=== PATIENT | female | born 2000 | race African-American/Black ===

== ENCOUNTER 2022-01-28 09:29 | Emergency (ER) | payer OTHER, SELFPAY ==
[2022-01-28 09:43] VITALS: BP 137/87; PULSE 70; RESP 16; TEMP 36.7; O2SAT 99
--- NOTE | 2022-01-28 09:51 | ED.WOUNDLAC ---
HPI - Wound/Laceration General Chief Complaint: Wound/Laceration Stated Complaint: Right Pinky Finger Laceration Time Seen by Provider: 01/28/22 09:52 Source: patient Mode of arrival: ambulatory Limitations: no limitations History of Present Illness HPI narrative: 21-year-old female presented for complaint of laceration to the right little finger 4 days ago. She states she cannot bend the finger at the site of the laceration. She denies significant redness, swelling, or any drainage. Related Data Allergies Allergy/AdvReac Type Severity Reaction Status Date / Time No Known Allergies Allergy Verified 01/28/22 10:04 Review of Systems Review of Systems: CONSTITUTIONAL: Denies body aches, fever, chills, or sweats. EYES: Denies visual changes, redness, or discharge. ENT: Denies rhinorrhea, congestion CARDIOVASCULAR: Denies chest pain, palpitations, or edema. RESPIRATORY: Denies cough or dyspnea. GASTROINTESTINAL: Denies abdominal pain, nausea, vomiting, or diarrhea. SKIN: laceration to right finger MUSCULOSKELETAL: Denies back pain, joint pain, or myalgia. NEUROLOGIC: Denies headache, numbness, tingling, or weakness. PMFSH Comments At time of signature, I have reviewed and agree with nursing past medical, surgical, social and family history unless otherwise noted. Please see nursing chart for further information. There is no relevant family history pertinent to the presenting complaint Exam Narrative: GENERAL: Well-appearing EYES: conjunctivae clear, and EOMI. ENT: Mucous membranes moist. Oropharynx without edema, erythema or lesions. CHEST: Clear to auscultation. HEART: Regular rate and rhythm. SKIN: Warm, dry. Healing laceration approx 0.5cm, transverse, to right 5th finger at the palmar surface of PIP. Decreased ROM to the finger at PIP, unable to flex. Strength decreased. Subjective decreased sensation surrounding the laceration. Endorses sensation intact distally. Cap refill <3seconds. Skin is warm, no active drainage or surrounding erythema. NEURO: Alert and oriented x3. Course Course Emergency Course: Patient is aware of diagnosis, understands and agrees to treatment plan. Anticipatory guidance given. Patient agrees to follow-up as directed and is aware of reasons to seek care at the emergency department. Portions of this record may have been created with voice recognition software Level of Care: Express Care Visit Vital Signs Vital signs: Vital Signs Temperature 98.1 F 01/28/22 09:43 Pulse Rate 70 01/28/22 09:43 Respiratory Rate 16 01/28/22 09:43 Blood Pressure 137/87 01/28/22 09:43 Pulse Oximetry 99 01/28/22 09:43 Oxygen Delivery Room Air 01/28/22 09:43 Temperature 98.1 F 01/28/22 09:43 Pulse Rate 70 01/28/22 09:43 Respiratory Rate 16 01/28/22 09:43 Blood Pressure 137/87 01/28/22 09:43 Pulse Oximetry 99 01/28/22 09:43 Oxygen Delivery Room Air 01/28/22 09:43 Reviewed MDM - Wound/Laceration MDM Narrative Medical decision making narrative: Concern for flexor tendon involvement. Patient is advised to f/u with the Hand specialist, instructed to call today to schedule an appointment. No apparent cellulitis or induration. Reports pain is mild. Tetanus within 10 years. Advised supportive measures and signs/symptoms to go to the ER. Pt is appropriate for outpt treatment and f/u. Differential Diagnosis Differential diagnosis: Likely laceration, abrasion, avulsion of skin and other Discharge Plan Discharge Clinical Impression: Laceration Patient Disposition: Home, Self-Care Condition: Stable Additional Instructions: Keep the area clean and dry - cleanse with warm water and mild soap and allow to fully dry. Ok to apply neosporin to the site, Keep it open to air (no bandages) Avoid peroxide Continue passive exercises Keep hand up to reduce swelling Tylenol and ibuprofen as needed for pain Watch for worsening symptoms including pain, redness
== END 2022-01-28 10:22 | disposition home or self-care (01) ==
PROVIDERS: Emergency Provider Nurse Practitioner Family
DX: S61.216A Laceration without foreign body of right little finger without damage to nail, initial encounter (principal); X58.XXXA Exposure to other specified factors, initial encounter
CPT/HCPCS: 99203; G0463

== ENCOUNTER 2022-01-29 02:52 | Day surgery (SDC) | payer OTHER, SELFPAY ==
[2022-01-28 14:16] VITALS: BMI 20.3
--- NOTE | 2022-01-28 14:24 | PC.NURSE ---
Report to the Outpatient Waiting Room, entrance under the green pavilion located off [facility], at time 0900 on date 01/29/22. OR Time: 1100. Time changes happen often and if your time is changed the preop area will call you the afternoon before. - You and your visitor will be asked to self-screen and do not enter if you have any COVID symptoms. - We encourage only one visitor and NO visitors under age 16 are allowed at this time. Your visitor will receive communication by the phone number that is given day of service. - The patient visitor is requested to social distance or may leave the building when not with patient due to restrictions. - A mask is required within the hospital. Patients may have clear liquids (water, carbonated beverages, clear teas, apple juice) until 3 hours prior to surgery with a maximum of 20 ounces. - No food from midnight until time of surgery Take the following medications with a SIP of water the morning of surgery: CEPHALEXIN Medications to discontinue per physician: N/A Date to take last dose: N/A Please no make-up, nail latvian, hairspray, perfume, deodorant, or body powder the day of surgery. No jewelry (including any body piercings) or valuables the day of surgery, leave them at home. Please take a shower or bath the night before, or the morning of, surgery with an antibacterial soap. Wear comfortable, loose fitting clothing. - Jewelry must be removed prior to entering the operating room. Rings and piercings that are not removed may be cut off. - The hospital will not accept responsibility for valuables. - Please leave all valuables, including medications, at home the day of surgery. If you are going home after surgery, a licensed cdl dedicated truck driver must drive you home. - NO public transportation without another adult. - We recommend that an adult stay with you for 24 hours following discharge. - We also recommend that you do not drive, make important decision, drink alcoholic beverages, or take any drugs that were not prescribed by your health care provider for at least 24 hours after your discharge time. Follow any additional instructions given to you from your surgeon. If you or anyone in your household have experienced Covid symptoms in the past week, please notify your surgeon or the nurse liaison at the phone number below for possible testing. Telephone instructions given to PT - BRAYDEN ALEMAN and asked if any additional questions and then verbalized understanding. Patient advised to call surgeon office or pre surgery nurse liaison [phone] if any additional questions.
--- NOTE | 2022-01-29 07:13 | WPDHPUPDATE1 ---
History and Physical Update Update Date/Time: 01/29/22 07:13 History and Physical has been reviewed, including an updated exam of the patient. There are NO changes in the patient's condition. Risks, benefits, and alternatives have been discussed and questions answered. Patient agrees to proceed with procedure.
[2022-01-29] MEDS: ACETAMINOPHEN 500 MG TABLET 1000 MG PO (07:35)
[2022-01-29 07:44] VITALS: BP 114/75; PULSE 67; RESP 16; TEMP 36.8; O2SAT 100
[2022-01-29] MEDS: LACTATED RINGERS 1,000 ML 30 ML IV CONT ×2 (08:02→12:37)
--- NOTE | 2022-01-29 08:28 | WPDANESEPPF ---
Anes - Initial Pre Proc Eval Procedure: Operation Date: 01/29/22 09:30 Proposed Procedures p Repair Two Flexor Tendons and Digital Nerves Right Fifth Finger - Rojas Ward MD Date/Time: 01/29/22 08:28 Surgeon: Rojas Ward MD Pre Op Diagnosis: Lac Flexor Tendons & Digital Nerve Rt 5th finger Patient Data Age: 21 Gender: F Height: 1.7 m Weight: 55.8 kg Last Vital Signs Temp 36.8 C 01/29/22 07:44 Pulse 67 01/29/22 07:44 Resp 16 01/29/22 07:44 BP 114/75 01/29/22 07:44 Pulse Ox 100 01/29/22 07:44 O2 Del Method Room Air 01/29/22 07:44 Allergies Allergy/AdvReac Type Severity Reaction Status Date / Time No Known Allergies Allergy Verified 01/29/22 07:31 Home Medications Medication Instructions Recorded Confirmed Type cephalexin 500 mg capsule 500 mg PO Q12H 5 days #10 caps 01/28/22 01/29/22 Rx Patient hx anesthesia problems: none Family hx anesthesia problems: none Results Review: All pre-operative results and documents have been reviewed as part of the pre-operative evaluation. [facility] Social History Social History Smoking status: Current every day smoker Tobacco type: e-cigarettes/vaping Alcohol intake: never Substance use: never Substance use type: does not use Living arrangements: with friend(s) Spiritual care concerns: No Anes - Eval Final PreProcedure Day of Procedure 01/29/22 08:28 Patient weight: normal Heart: regular rate and rhythm Lungs: clear to auscultation Airway: Mallampati scale class 1 Neurological: alert and oriented ASA classification: II Emergent: no Anesthetic plan: proceed Anesthesia type and monitoring: general LMA and standard monitoring Results Review: All pre-operative results and documents have been reviewed as part of the pre-operative evaluation. Informed Consent: The patient's anesthetic plan and its attendant risks and benefits were discussed with the patient/family/POA. Questions were solicited and answers provided to the satisfaction of the patient/family/POA.
[2022-01-29] MEDS: ceFAZolin 2 GM/D5W 50 ML 2 GM/50 ML BAG IVPB (09:10)
[2022-01-29 12:37] VITALS: BP 125/88; PULSE 86; RESP 19; TEMP 36.4; O2SAT 100
[2022-01-29] MEDS: BUPIVACAINE HCL 0.25% PF 30 ML VIAL INFILTRATE (12:45)
[2022-01-29 12:50] VITALS: BP 122/91; PULSE 60; RESP 13; O2SAT 100
[2022-01-29 13:05] VITALS: BP 124/87; PULSE 59; RESP 23; O2SAT 100
[2022-01-29 13:15] VITALS: BP 122/85; PULSE 63; RESP 18
[2022-01-29 13:45] VITALS: BP 125/76; PULSE 65; RESP 18
--- NOTE | 2022-01-29 15:28 | W.PM.PROC2 ---
Procedure Note - Detailed Date of Procedure 01/29/22 Pre-op Diagnosis Lac Flexor Tendons & Digital Nerve Rt 5th finger Post-op Diagnosis Other (Laceration of the right 5th flexor digitorum profundus in zone 1) Procedure Performed Delayed primary neurorrhaphy of the flexor digitorum profundus to the right 5th finger and exploration of the radial digital nerve of the right 5th finger Surgeon Rojas Ward MD Straddle Truck Operator Lanie Anesthesia General Indications Laceration of the palmar aspect of the right 5th finger at the proximal interphalangeal joint Findings Intact digital nerves. Intact flexor digitorum superficialis. Laceration of the profundus tendon at the D IP joint Description of Procedure The patient's right small finger was marked while she waited in the holding area. She was taken then to the operating room where she was placed supine on the operating table and given general endotracheal anesthesia. The right upper extremity was prepped and draped in usual fashion. Markings were made for the Aravind type incision to explore this region as needed. The area was widely infiltrated with 2% lidocaine with epinephrine. The extremity was exsanguinated with the Esmarch tourniquet and the pneumatic tourniquet inflated to 250 mmHg. The incision was made across the proximal interphalangeal joint following the original injury line. Skin flaps were elevated in Aravind fashion to both sides distally and proximally. The radial digital nerve about which we had particular concerned was explored and noted to be intact. The flexor tendon sheath was exposed and hemorrhage was noted at the level of the distal interphalangeal joint. There was also a rent in the sheath distal to the A3 perry where the proximal stump of the profundus tendon could be visualized easily. It protruded slightly at that level. This was carefully opened preserving the C1 cruciate and the A3 perry. The insertion of the superficialis could be visualized through that window. The Denzel dilator was used to dilate the a 4 perry and pull the suture through after applying a compressing 4-0 nylon suture to the end of the proximal stump. The tendon was pulled distally and stabilized with a 25 gauge transfixing needle. The distal stump was exposed. It appeared that some of the the vincula was attached. Because of the small working space about 25% of the A4 perry was incised distally. A running peripheral suture was placed approximating the dorsal aspect. The core sutures were 4-0 nylon locking stitches using 4 strands. Slight compression of the repair site occurred as the knots were tied. The anterior aspect was also sutured with a running 6 0 locking nylon peripheral stitch. The finger could be fully extended without undue tension. The site was irrigated and the wound closed with running 5 0 nylon. A bulky bandage with an ulnar gutter splint was applied with the metacarpophalangeals joints flexed about 50?, the wrist slightly extended and the IP joints straight. The tourniquet was released about detention through the case at 73 minutes and not reinflated. Estimated Blood Loss 5 Tourniquet Time 73 Drains No Packing No Pathology None sent Complications No immediate complications Condition Stable Disposition PACU
== END 2022-01-29 14:18 | disposition home or self-care (01) ==
PROVIDERS: Visit Provider Plastic Surgery
PROC: (CPT 26370; principal; 2022-01-29 09:30)
DX: S66.126A Laceration of flexor muscle, fascia and tendon of right little finger at wrist and hand level, initial encounter (principal); W26.0XXA Contact with knife, initial encounter; F17.290 Nicotine dependence, other tobacco product, uncomplicated
CPT/HCPCS: 26370; A9270; J0690; J1100; J1644; J1885; J2250; J2405; J2704; J3010; J7030; J7120